=== PATIENT | male | born 1965 | race Caucasian/White ===

== ENCOUNTER 2017-11-11 17:31 | Emergency (ER) | payer OTHER ==
--- NOTE | 2017-11-11 18:03 | EDPHY ---
H & P Stated Complaint: M1, SI, depression - Medical/Surgical History Hx Asthma: Yes Hx Chronic Respiratory Disease: No Hx Diabetes: No Hx Cardiac Disease: No Hx Renal Disease: No Hx Cirrhosis: No Hx Alcoholism: Yes Hx Splenectomy or Spleen Trauma: No Other PMH: htn. 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 His suicide plan is to jump off of a ishan. Per the M1 report he reported that he thought of walking up a hill behind [facility] and jumping to his then began walking up the hill and was followed by staff. History of depression, recently started on Effexor. Denies self-injurious attempt such as cutting, burning, punching her hitting. Denies hallucination. Denies homicidal ideation PRIMARY CARE PROVIDER: REVIEW OF SYSTEMS: 10 systems reviewed and negative with exception of illness mention the history of present illness PAST MEDICAL & SURGICAL HISTORY: Depression. Asthma. Alcohol abuse. Hypertension. Appendectomy. Tonsillectomy. SOCIAL HISTORY:Positive for tobacco use. PHYSICAL EXAM (Prior to examination, patient consented to physical exam, hands were washed and my usual and customary physical exam procedures followed) 1) GENERAL: Well-developed, well-nourished, alert and oriented. Appears to be in no acute distress. Laying on bed, appears comfortable 2) HEAD: Normocephalic, atraumatic 3) HEENT: Pupils equal, round, reactive to light bilaterally. Sclera anicteric. 4) NECK: Full range of motion, no meningeal signs. 5) LUNGS: Clear auscultation bilaterally, no wheezes, no rhonchi, no retractions. 6) HEART: Regular rate and rhythm, no murmur, no heave, no gallop. 7) ABDOMEN: No guarding, no rebound, no focal tenderness, negative McBurney's, negative Thurman's, negative Rovsing's, negative peritoneal sign, 8) MUSCULOSKELETAL: Moving all extremities, no focal areas of tenderness, no obvious trauma. No peripheral edema or discoloration. 9) BACK: No CVA tenderness, no midline vertebral tenderness, no fluctuance, no step-off, no obvious trauma, no visual or palpable abnormality. 10) SKIN: No rash, no petechiae. 11) Psychiatric: Patient is oriented X 3, intermittently agitated, intermittently argumentative DIFFERENTIAL DIAGNOSIS: In no particular order including but not limited to depression, suicidal ideation, homicidal ideation (Shai Campos) Constitutional: Initial Vital Signs Temperature (C) 36.5 C 11/11/17 17:55 Heart Rate 84 11/11/17 17:55 Respiratory Rate 18 11/11/17 17:55 Blood Pressure 146/81 H 11/11/17 17:55 O2 Sat (%) 97 11/11/17 17:55 O2 Delivery Mode Room Air Allergies/Adverse Reactions: codeine Allergy (Verified 11/11/17 17:46) Home Medications: Medication Instructions Recorded Albuterol 11/11/17 Carvedilol 11/11/17 Keppra 11/11/17 Pepcid 11/11/17 Trazodone HCl 11/11/17 Medical Decision Making ED Course/Re-evaluation: 6:03 p.m.: Patient has laboratory studies already drawn at [facility]. Will have nursing staff contact mental health automatic buffer. Patient's, cooperative at this point on an M1 hold. I saw this patient independently based on established practice protocols. Care of patient under supervision of secondary supervising physician Dr Molina with whom I discussed case. 1:00 a.m.: Care turned over to Dr. Dion Concepcion. Placement pending. (Shai Campos) No acute events overnight. Patient signed over to Dr. Fuller 7am. Pending admission. Depression/SI m1 (Dion Concepcion) Other Provider: 0700: I assumed care of this patient from Dr. Concepcion at shift change. 0953: Patient has been accepted to [facility] by Dr. Steffany Wong. EMTALA form signed. (Alex Fuller) - Data Points Medications Given: Discontinued Medications Ibuprofen (Motrin) 800 mg PO EDNOW ONE Stop: 11/11/17 23:53 Last Admin: 11/11/17 23:52 Dose: 800 mg Departure - Departure Disposition: Other Psych, Not [place] Clinical Impression: Suicidal ideation, Severe major depression Condition: Fair Referrals: NONE *PRIMARY CARE P,. [Primary Care Provider] - As per Instructions
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
[2017-11-11] MEDS ORDERED: IBUPROFEN 800 MG TAB PO ONE ×2 (23:50→23:52)
--- NOTE | 2017-11-12 10:14 | ASMTTCLDSP ---
TLC Discharge Disposition Disposition: Answers: Transfer Disposition Notes: Notes: In consultation with [facility] ED physician, Tramaine Molina, and on-call psychiatrist, Leroy Colin MD both concurred that pt appears to meet 27-65 criteria requiring psychiatric hospitalization as pt appears to be at risk of harm to self due to a mental illness condition. Discharge Concerns/Recommendations: Notes: Pt transferred to the dual diagnosis unit at [facility]. Accepting is Dr Flynn. Was patient given the Answers: Not applicable Inpatient Behavioral Health Prohibited Belongings List while in the ED? Type of Hold: Answers: M1/72-hour Hold Hold initiated by: Answers: Other Notes: [facility] For Transfers, Accepting [facility] Facility: For Transfers, Accepting Dr. Flynn Psychiatrist: For Transfers, Reason Needing dual diagnosis Patient is Being Transferred: Date Signed: 11/12/2017 10:13 AM Electronically Signed By:Baylee Hill
[2017-11-12 11:56] VITALS: BP 138/89
== END 2017-11-12 11:56 ==
DX: F32.2 Major depressive disorder, single episode, severe without psychotic features (principal)
CPT/HCPCS: 80305